=== PATIENT | female | born 1955 | race Caucasian/White ===

== ENCOUNTER 2018-07-22 13:38 | Outpatient (CLI) | payer MEDICAID, SELFPAY ==
--- NOTE | 2018-07-22 10:42 | DI.RAD_ITS ---
SYMPTOMS/DIAGNOSIS: ARTHRITIS, M19.90, FOOT PAIN, M79.673 RIGHT FOOT: The bones appear osteopenic. There are small heal spurs. There is narrowing at the tarsal metatarsal joints as well as at the navicular cuneiform joints. The MTP joints are unremarkable. There is no evidence of fracture. IMPRESSION: Degenerative changes greatest of the tarsal metatarsal joints. LEFT FOOT: There is no evidence of fracture. The bones appear osteopenic. There is narrowing and spurring at the tarsal metatarsal joints. Spurring is also seen at the talonavicular joints. Heel spurs are present. The MTP joints are unremarkable. No bony erosions are seen. IMPRESSION: Degenerative changes greatest at the tarsal metatarsal joints.
== END 2018-07-22 13:58 ==
PROVIDERS: PCP Family Medicine; Visit Provider Family Medicine
DX: M79.671 Pain in right foot (principal); M19.071 Primary osteoarthritis, right ankle and foot; M77.31 Calcaneal spur, right foot; M79.672 Pain in left foot; M19.072 Primary osteoarthritis, left ankle and foot; M77.32 Calcaneal spur, left foot
CPT/HCPCS: 73630

== ENCOUNTER 2019-02-04 01:13 | Outpatient (CLI) | payer MEDICAID, SELFPAY ==
--- NOTE | 2019-02-04 12:37 | DI.MAMMO_ITS ---
EXAM: MG MAMMO SCREENING CLINICAL HISTORY: [facility] Z00.00, SCREENING. TECHNIQUE: Mammograms were interpreted according to the usual protocol including computer analysis w [employer] system, tomosynthesis and C-view imaging. COMPARISON: Current examination is compared with previous examinations including January 2017 FINDINGS: Breasts are of moderate density with fairly symmetrical distribution of fibroglandular tissue. No dom inant mass or clumped microcalcification is identified in either breast. Current examination is naomi red with previous examinations including January 2017 and there has been no gross interval change in appearance in comparison with previous studies. IMPRESSION: No specific evidence of malignancy at this time. Routine screening examinations are suggested at year ly intervals in this age group according to the ACS/ACR guidelines. Category 1, breast density catego ry B. BI-RADS Cat 1 - Negative Breast Density - Category B - Scattered areas of fibroglandular density
== END 2019-02-04 01:33 ==
PROVIDERS: PCP Family Medicine; Visit Provider Family Medicine
DX: Z12.31 Encounter for screening mammogram for malignant neoplasm of breast (principal); Z00.00 Encounter for general adult medical examination without abnormal findings
CPT/HCPCS: 77063; 77067

== ENCOUNTER 2019-03-11 16:53 | Outpatient (REF) | payer MEDICAID, SELFPAY ==
[2019-03-11 20:42] LABS: Abs Immature Grans 0.01 k/cumm (0.0-0.09); Absolute Basophil Count 0.02 k/cumm (0.0-0.2); Absolute Eosinophil Count 0.36 k/cumm (0.0-0.7); Absolute Lymphocyte Count 0.98 k/cumm (1.2-3.4); Absolute Monocyte Count 0.41 k/cumm (0.11-0.7); Absolute Neutrophil Count 2.98 k/cumm (1.2-6.7); Basophils % 0.4; Eosinophils % 7.6; HCT 38.4 % (36.0-46.0); HGB 12.3 g/dL (12.0-15.5); Immature Grans % 0.2; Lymphocytes % 20.6; Mean Corpuscular Hemoglobin 30.8 pg (27.0-33.0); Monocytes % 8.6; Neutrophils % 62.6; Platelet Count 306 x1000/uL (130-400); RBC Distribution Width 12.2 % (11.7-14.6); White Blood Cell Count 4.76 k/cumm (4.4-10.8)
[2019-03-11 21:11] LABS: TSH (W/Ref FT4) 0.91 uIU/mL (0.36-3.74); Vitamin B12 299 pg/mL (193-986)
[2019-03-15 17:24] LABS: Albumin 60.8 % (55.8-66.1); Total Protein 6.8 g/dL (6.3-8.2)
== END 2019-03-11 17:13 ==
LOC: NCHCN 16:53
PROVIDERS: PCP Family Medicine; Visit Provider Family Medicine
DX: R22.42 Localized swelling, mass and lump, left lower limb (principal); M25.562 Pain in left knee; G62.9 Polyneuropathy, unspecified
CPT/HCPCS: 82607; 84165; 84443; 85025

== ENCOUNTER 2019-03-12 09:00 | Outpatient (CLI) | payer MEDICAID, SELFPAY ==
--- NOTE | 2019-03-12 11:52 | DI.US_ITS ---
EXAM: US LOWER EXTREMITY VENOUS LT CLINICAL HISTORY: SWELLING LT LEG R22.42, LT KNEE PAIN M25.562 TECHNIQUE: Left lower extremity venous ultrasound performed using grayscale, color-flow, and spectra l Doppler analysis. COMPARISON: No exams were available for comparison FINDINGS: The left common femoral, femoral and popliteal veins demonstrate normal compressibility, augmentation , and color Doppler. The posterior tibial veins are patent. The saphenofemoral junction is unremarkab le. There is no evidence of a popliteal cyst. IMPRESSION: No DVT.
== END 2019-03-12 09:20 ==
PROVIDERS: PCP Family Medicine; Visit Provider Family Medicine
DX: R22.42 Localized swelling, mass and lump, left lower limb (principal); M25.562 Pain in left knee
CPT/HCPCS: 93971

== ENCOUNTER 2020-02-14 15:40 | Outpatient (CLI) | payer MEDICAID, SELFPAY ==
--- NOTE | 2020-02-14 13:00 | DI.RAD_ITS ---
EXAM: XR KNEE LT 4V AP,LAT,MALCOLM,PAT INDICATION: lt knee pain. COMPARISON: CR RIGHT KNEE 3 VIEWS from 10/06/2015 TECHNIQUE: 2D digital imaging was performed. FINDINGS: There is moderate to severe narrowing of the medial femoral tibial joint. There is periarticular spu rring. There is mild spurring at the tibial spines. There is also moderate spurring at the patellof emoral joint with no significant joint space narrowing. Venous varicosities are noted medially. IMPRESSION: Degenerative changes, greatest of the medial femoral tibial joint. DATA REPOSITORY: RADIATION DOSE DELIVERED:
== END 2020-02-14 16:00 ==
PROVIDERS: PCP Family Medicine; Referring Provider Family Medicine; Visit Provider Physician Assistant Surgical
DX: M17.12 Unilateral primary osteoarthritis, left knee (principal)
CPT/HCPCS: 73564

== ENCOUNTER 2021-07-19 18:11 | Outpatient (REF) | payer MEDICAID, SELFPAY ==
[2021-07-19 19:22] LABS: ALT 22 U/L (14-59); AST 17 U/L (15-37); Albumin 4.1 g/dL (3.4-5.0); Alkaline Phosphatase 126 U/L (46-116); Anion Gap 11.6 mmol/L (3-11); BUN 21 mg/dL (7-18); Bilirubin, Total 0.6 mg/dL (0.2-1.0); CO2 22.4 mmol/L (21.0-32.0); CREATININE 0.6 mg/dL (0.55-1.02); Calcium 8.6 mg/dL (8.5-10.1); Calculated LDL 142 mg/dL (<100); Chloride 105 mmol/L (98-107); Cholesterol 226 mg/dL (<200); Glucose 88 mg/dL (74-106); HDL Cholesterol 69 mg/dL (40-60); Potassium 4.1 mmol/L (3.5-5.1); Sodium 139 mmol/L (136-145); Triglyceride 75 mg/dL (<150)
== END 2021-07-19 18:12 | disposition home or self-care (01) ==
LOC: NCHCN 18:11
PROVIDERS: PCP Family Medicine; Visit Provider Family Medicine
DX: Z00.00 Encounter for general adult medical examination without abnormal findings (principal)
CPT/HCPCS: 80053; 80061

== ENCOUNTER → 2021-09-28 00:04 | Outpatient (CLI) | payer MEDICAID, SELFPAY ==
--- NOTE | 2021-09-28 | DI.DEXA_ITS ---
Exam(s) XR DEXA BONE DENSITY W/WO YARED EXAM: XR DEXA BONE DENSITY W/WO YARED CLINICAL HISTORY: [facility] Z78.0, SCREENING for osteoporosis TECHNIQUE: COMPARISON: No exams were available for comparison FINDINGS: Lateral Spine Image: Unremarkable. No compression deformities identified. Left hip: Total T-Score: -1.4 Total Z-Score: -0.1 T- and Z-scores: Findings are consistent with osteopenia. Lumbar Spine: Total T-Score: 0.9 Total Z-Score: 2.8 T- and Z-scores: Within normal limits. IMPRESSION: No evidence of osteoporosis.
--- NOTE | 2021-09-28 10:49 | DI.MAMMO_ITS ---
Exam(s) MAMMO SCREENING EXAM: MAMMO SCREENING CLINICAL HISTORY: SCREENING FOR BREAST CANCER Z12.31 TECHNIQUE: Bilateral full field digital CC and MLO mammographic images were obtained with 3D tomosyn thesis and utilizing computer aided detection (CAD). COMPARISON: Available for comparison. FINDINGS: Masses/Architectural Distortion: None seen. Microcalcifications: No suspicious pleomorphic-type are seen. Skin Thickening/Nipple Retraction: None. IMPRESSION: 1. No significant interval change with no specific features of malignancy noted. 2. Unless there is more urgent need, screening mammography is recommended, as per [employer] guidelines. BI-RADS Category 1 - Negative Breast Density - Category B - Scattered areas of fibroglandular density Breast density category C or D implies that the patient has dense breast tissue. Dense breast tissue is very common and is not abnormal but dense breast tissue can make it harder to find cancer on a ma mmogram. Also, dense breast tissue may increase their breast cancer risk. This information about the result of the mammogram report was provided to the patient to raise their awareness. Use this report when you speak with the patient about their risks for breast cancer, which includes their family hist ory. At that time, you may recommend for more screening tests (Ultrasound or MRI) as they might be us eful based on their risk. A negative radiographic report should not delay biopsy if a dominant or clinically suspicious mass is present. Up to ten percent of cancers are not identified on mammography. A negative report may reinforce clinical impression. Adenosis and dense breasts may obscure an underlying neoplasm. False positive reports average 6 to 10%. Patient will receive a letter notifying them of these results.
== END ==
PROVIDERS: PCP Family Medicine; Visit Provider Family Medicine
DX: Z12.31 Encounter for screening mammogram for malignant neoplasm of breast (principal); R92.8 Other abnormal and inconclusive findings on diagnostic imaging of breast; Z13.820 Encounter for screening for osteoporosis; Z78.0 Asymptomatic menopausal state
CPT/HCPCS: 77063; 77067; 77080

== ENCOUNTER 2022-04-04 13:20 | Outpatient (REF) | payer MEDICAID, SELFPAY ==
[2022-04-04 16:07] LABS: Calculated LDL 142 mg/dL (<100); Cholesterol 223 mg/dL (<200); HDL Cholesterol 72 mg/dL (40-60); Triglyceride 45 mg/dL (<150)
== END 2022-04-04 13:21 | disposition home or self-care (01) ==
LOC: NCHCN 13:20
PROVIDERS: PCP Family Medicine; Visit Provider Family Medicine
DX: R03.0 Elevated blood-pressure reading, without diagnosis of hypertension (principal); Z00.00 Encounter for general adult medical examination without abnormal findings
CPT/HCPCS: 80061

== ENCOUNTER 2023-01-28 16:10 | Outpatient (REF) | payer MEDICAID, SELFPAY ==
[2023-01-28 16:00] LABS: ALT 21 U/L (14-59); AST 19 U/L (15-37); Albumin 3.7 g/dL (3.4-5.0); Alkaline Phosphatase 116 U/L (46-116); Anion Gap 10.2 mmol/L (3-11); BUN 25 mg/dL (7-18); Bilirubin, Total 0.6 mg/dL (0.2-1.0); CO2 22.8 mmol/L (21.0-32.0); CREATININE 0.9 mg/dL (0.55-1.02); Calcium 8.8 mg/dL (8.5-10.1); Calculated LDL 125 mg/dL (<100); Chloride 107 mmol/L (98-107); Cholesterol 207 mg/dL (<200); Estimated GFR 69.64 (mL/min/1.73m2); Glucose 99 mg/dL (74-106); HDL Cholesterol 68 mg/dL (40-60); Potassium 4.1 mmol/L (3.5-5.1); Sodium 140 mmol/L (136-145); Triglyceride 73 mg/dL (<150)
== END 2023-01-28 16:11 | disposition home or self-care (01) ==
LOC: NCHCN 16:10
PROVIDERS: PCP Family Medicine; Visit Provider Family Medicine
DX: R03.0 Elevated blood-pressure reading, without diagnosis of hypertension (principal); R79.89 Other specified abnormal findings of blood chemistry
CPT/HCPCS: 80053; 80061

== ENCOUNTER 2023-03-14 09:40 | Day surgery (SDC) | payer MEDICAID, SELFPAY ==
--- NOTE | 2023-03-13 15:27 | PDOC.DSDIS_ITS ---
Date of service: 03/14/23 Time of Service: 11:25 Discharge Plan Disposition Patient Disposition: Home Condition: Good Discharge Details Reason For Visit: Screening colonoscopy Attending Provider: Js Sparks Primary Care Provider: Florence Graham V Home Meds and New Rx's Prescriptions: Continued diclofenac sodium [Voltaren Arthritis Pain] 1 % gel 2 g topical QID PRN Rx Instructions: apply to single elbow, wrist or hand; for hand includes palm/fingers/back of hand naproxen 500 mg tablet 500 mg PO BID PRN cholecalciferol (vitamin D3) 50 mcg (2,000 unit) capsule 50 mcg PO DAILY cyanocobalamin (vitamin B-12) 1,000 mcg capsule 1,000 mcg PO DAILY Discontinued bisacodyl [Dulcolax (bisacodyl)] 5 mg tablet,delayed release (DR/EC) 5 mg PO ONCE Qty: 4 0RF Rx Instructions: Take per colonoscopy instructions provided by ordering providers office polyethylene glycol 3350 17 gram/dose powder 17 g PO ONCE Qty: 238 0RF Rx Instructions: Take per colonoscopy instructions provided by ordering providers office Discharge Instructions Instructions: Colorectal Polyps (GEN) Additional Instructions: Eliana, We were able to complete your colonoscopy today without any difficulty. I did find 2 small polyps. I removed these both completely. Once I have the results of the polyp report, my office will be in touch with recommendations for your next colonoscopy. Incidentally, you do have some very mild internal hemorrho ids. They do not require any specific treatment unless they become problematic for you. 1. If tolerated, consume a soft, low fiber diet for 1-2 days. 2[address] Do not drive, drink alcohol, operate machinery, make critical decisions, or do activities that require coordination or balance for 24 hours. 3. Because air was put into your colon during the procedure, expelling air from your rectum (passing gas or farting) is normal. 4. You may not have a bowel movement for 1-3 days because of the colonoscopy prep. This is normal. 5. Go directly to the emergency room if you notice any of the following: Develop chills (warm to touch), or if you have a thermometer and your temperature is above 101 Difficulty breathing or difficultly swallowing Persistent vomiting Severe abdominal pain, other than gas cramps Severe chest pain Black, tarry stools Any bleeding ? exceeding one tablespoon 6. Call your physician if the site where your intravenous was started becomes red, swollen, painful, and warm to touch. 7. Your physician has reviewed your pre-procedure medications. Please continue to take those medications as previously ordered. You will be given specific information/education regarding any changes to your medications before leaving. Activity:: Activity as Tolerated Diet:: As Tolerated Discharge Orders Discharge Orders: Discharge Order (Routine); Ordered 03/13/23 Ordered By: Js pSarks DS: Diagnosis Discharge Diagnosis (1) Screening for colorectal cancer: Status: Acute Asessment and Plan: Follow-up on polypectomy results
--- NOTE | 2023-03-13 15:28 | W.COLOREPORT ---
Date of service: 03/14/23 Time of Service: : Colonoscopy Report Date of procedure: 03/14/23 Pre-op diagnosis general: Screening colonoscopy Post-op diagnosis procedure note: other (Colon polyps, hemorrhoids) Procedure: Colonoscopy Surgeon: Js Sparks Anesthesia Type: General:No Airway Estimated blood loss (mL): 5 Pathology: other (0.25 cm polyp at 35 cm, 0.25 cm polyp at 15 cm) Complications: None Disposition: same day Indications: Eliana is 67 years old. She has a positive Cologuard test, needs a follow-up screening colonoscopy Prep: Miralax/Dulcolax Procedure Start Time: 10:57 Procedure End Time: 11:18 Retraction Time: 15 Findings: Grade 1 internal hemorrhoids, 0.25 cm polyp at 35 cm, 0.25 cm polyp at 15 cm Procedure Description: After the induction of monitored anesthetic care, and with the patient in left lateral decubitus position, I began by performing an external anorectal exam.? Perineum and skin were normal, as was the anal verge.? There were some external perianal skin tags consistent with old hemorrhoids.? Next, I performed a digital rectal exam.? I did not appreciate any abnormal findings.? Next, I advanced a colonoscope into the rectal vault.? I performed retroflexion.? There are grade 1 internal hemorrhoids.? Using insufflation, I then advanced the colonoscope beyond the rectal folds and into the sigmoid colon before advancing towards the cecum.? The quality of the prep was excellent.? The scope was noted to be in the cecum by identification of the ileocecal valve and appendiceal orifice.? I then began withdrawing the colonoscope using repeated irrigation as necessary for full evaluation of the colonic mucosa. Around 35 cm from the anal verge was a 0.25 cm sessile polyp. I removed this with cold forceps and there was minimal bleeding. Similarly, there was another 0.25 cm polyp around 15 cm from the anal verge. This was also sessile in nature, and I removed this with cold forceps as well. ?Once the scope was withdrawn to the level of the rectum, great care was taken to examine portions of the rectal folds.? Finally, the scope was withdrawn and the patient was brought to the same-day surgery recovery unit as the anesthetic wore off. ?The findings and instructions were shared with the patient prior to discharge. [place] Bowel Prep [place] Bowel Prep Right Colon: 3 Left Colon: 3 Transverse Colon: 3 Total Score: 9
[2023-03-14 09:45] VITALS: BP 145/82; PULSE 73; RESP 18; TEMP 36; O2SAT 96
[2023-03-14] MEDS: Lactated Ringers 1,000 ML 80 ML IV (10:18)
--- NOTE | 2023-03-14 10:34 | ANES.PREOP_ITS ---
General Info Date of Service Date Performed: 03/14/23 Height: 5 ft 4 in Weight: 68.9 kg Body Mass Index (BMI): 26.0 Surgical Procedure: Operation Date: 03/14/23 10:50 Proposed Procedure Side Surgeon gonzales Sparks MD Meds Allergies and Home Medications Allergies Allergy/AdvReac Type Severity Reaction Status Date / Time Sulfa (Sulfonamide Allergy Intermediate pruritis Verified 03/14/23 10:05 Antibiotics) Home Medication Medication Instructions Recorded cholecalciferol (vitamin D3) 50 50 mcg PO DAILY 11/18/22 mcg (2,000 unit) capsule cyanocobalamin (vitamin B-12) 1,000 mcg PO DAILY 11/18/22 1,000 mcg capsule diclofenac sodium 1 % topical gel 2 g topical QID PRN 11/18/22 (Voltaren Arthritis Pain) naproxen 500 mg tablet 500 mg PO BID PRN 11/18/22 Current Visit Medications: Current Medications Generic Name Dose Route Start Last Admin Trade Name Freq PRN Reason Stop Dose Admin Hyoscyamine Sulfate 0.125 mg 03/13/23 15:30 Hyoscyamine 0.125 Mg Sl/Oral/Chew SL 04/12/23 15:29 DIRECTED PRN Ringer's Solution 1,000 mls @ 80 mls/hr 03/14/23 06:00 03/14/23 10:18 IV 04/12/23 23:59 80 mls/hr INFUSION TRAM Administration IV Miscellaneous Supplies 1 each 03/14/23 06:00 Iv Access IV 04/12/23 23:59 DIRECTED TRAM Ondansetron HCl 4 mg 03/13/23 15:30 Ondansetron 4 Mg/2 Ml Vial IVP 04/12/23 15:29 Q4H PRN PRN Nausea / Vomiting Sodium Chloride 0 ml 03/14/23 06:00 Normal Saline Flush 10 Ml Syr IV 04/12/23 23:59 PRN PRN Sodium Chloride 0 ml 03/14/23 06:00 Normal Saline 10 Ml Vial IJ 04/12/23 23:59 DIRECTED PRN Sterile Water 0 ml 03/14/23 06:00 Water,Injection,Sterile 10 Ml Vial IJ 04/12/23 23:59 DIRECTED PRN PFSH Active Problems Active Problems: Problem Status Onset Code Screening for colorectal cancer Z12.11, Z12.12 Positive colorectal cancer screening using Cologuard test R19.5 Eyelid disorder H02.9 Guaiac positive stools R19.5 Primary osteoarthritis of left knee M17.12 Primary osteoarthritis of right knee M17.11 Left knee pain M25.562 Medical History Medical History (Updated 03/13/23 @ 15:27 by Js Sparks MD) DJD (degenerative joint disease) UTI (urinary tract infection) Chest wall pain Per pt. states this was stress related Poor dentition Knee pain, right Carpal tunnel syndrome, bilateral Peripheral neuropathy Arthritis Arthralgia Shoulder pain, right Foot pain Localized swelling of left lower leg Onychomycosis Elevated blood pressure reading without diagnosis of hypertension Hyperlipidemia Family history of premature coronary heart disease Family history of CVA Right carpal tunnel syndrome (10/06/15) Tobacco Smoking/Tobacco Use Status: Never Alcohol Alcohol Intake: never Substance Use Substance use: Never Substance use type: does not use Vital Signs and Lab Results Vital Signs Most Recent Vital Signs in EMR: Most Recent Vital Signs Temp Pulse Resp BP Pulse Ox 36 C L 73 18 145/82 H 96 03/14/23 09:45 03/14/23 09:45 03/14/23 09:45 03/14/23 09:45 03/14/23 09:45 Lab Results Blood Type / Crossmatch: No Data to Display Complete Blood Count: No Data to Display Complete Metabolic Panel: No Data to Display Liver Function Panel: No Data to Display Coagulation Panel: No Data to Display Cardiac Panel: No Data to Display Arterial Blood Gas: No Data to Display Venous Blood Gas: No Data to Display Pancreas Panel: No Data to Display Thyroid Panel: No Data to Display Infectious Disease: No Data to Display Blood Cultures: No Data to Display Toxicology Panel: No Data to Display Imaging and Studies Imaging and Studies Study information below may be from another EMR and interpreted by another provider. Please see original notes in EMR for more complete details. Stress Test Summary: 06/22/2015: Stress results: [facility] INFO:[id number] Maximal heart rate during stress was 160bpm (100% of maximal predicted heart rate). The maximal predicted heart rate was 160bpm. There is a normal resting blood pressure with a hypertensive response to stress. The rate-pressure product for the peak heart rate and blood pressure was 42351jl Hg/min. Constant low-grade (2/10) atypical chest pain. Exercise capacity is average for age. Stress ECG: STUDY DATA: EXCERCISE ENDED AT 6 MINS 33 SECS DUE TO FATIGUE. PT STARTED THE STUDY W/ BASELINE LEFT SHOULDER PAIN 2/10. NO INCREASE IN CHEST PAIN, NO LIMITING SOB, NO NAUSEA OR DIAPHORESIS DURING THE TESTING. METS:10.16 MAX HR: 160. 100% OF TARGET. MILDLY DIMINISHED EXCERCISE CAPACITY. DR. CORNEJO CONSULTED PRIOR TO DISCHARGING THIS PT. The stress ECG is positive. The specificity of this test is limited by left ventricular hypertrophy. Maximal ST change occurred during the exercise phase. Stress ECG change: horizontal depression. Severity: 1.5-2.0mm. In lead groups: II, III, and aVF. Lin treadmill score: -8. This score predicts a moderate risk of cardiac events. Anesthesia Assessment and Plan Anesthesia History Personal History: No History of Anesthesia Complications Family History: No Family History of Anesthesia Complications Exercise Tolerance Exercise Tolerance: Metabolic Equivalents>4 Pertinent Negatives Pertinent Negatives: No Symptoms of GERD, No Major Cardiovascular Symptoms or Complaints and No Major Pulmonary Symptoms or Complaints Cardiac & Pulmonary Exam Cardiac Exam: Normal S1/S2 Heart Sounds Pulmonary Exam: Clear Bilateral Breath Sounds Implantable Cardiac Device Does patient have a Pacemaker or an ICD?: No Airway Exam Known Difficult Airway: No Mallampati Class: 1 Mouth Opening: Normal (> 3cm) Thyromental Distance: Greater than 3 cm Neck Range of Motion: Full ROM Neck Circumference: Normal Teeth Condition: Removable Dentures/Plates Upper and Removable Dentures/Plates Lower ASA Classification ASA Score: ASA 2 Emergency Case?: No NPO Status NPO Status: NPO Clears >2 hours, Solids >8 hours Anesthesia Plan Resuscitation Status: Full Code Anesthesia Technique: General Anesthesia Airway Planned: Natural Airway Monitors Used: Standard Monitors Preoperative Comments:: Patient reports she followed up with cardiology in [place] after her stress testing and recalls no further intervention. Functionally, is very active, works on a farm milking cows and reports no episodes of chest pain or pressure. Recalls the events of 7/years/ago related to stress and anxiety.
[2023-03-14 10:38] VITALS: BMI 26.0
--- NOTE | 2023-03-14 11:12 | BOWEL_PTH ---
PATIENT: Eliana Borjas LOC: [facility] U#:[id number] AGE/SX: 67/F ROOM: RE03/14/[address]: Js Sparks MD : [id number] BED: DIS: 03/14/2023 SPEC #: [id number] RECD: 03/14/23 17:13 STATUS: [place] RE #: [id number] KAT: 03/14/23 11:[address]: Js Sparks DEPT: Surgical Specimen RECD BY: Carine Roberson ENTERED: 03/14/23 17:14 SP TYPE: Bowel OTHR DR: Florence Graham V Tissues: 1 - BIOPSY BOWEL 2 - BIOPSY BOWEL Procedures: GROSS AND MICRO LEVEL 4 Comments: [id number]
[2023-03-14 11:25] VITALS: BP 128/62; PULSE 72; RESP 16; TEMP 36; O2SAT 97
[2023-03-14 12:00] VITALS: BP 161/64; PULSE 66; RESP 16; TEMP 36; O2SAT 98
--- NOTE | 2023-03-14 12:12 | W.ANESPOSTOP ---
Postoperative Evaluation Date, Time and Location Date Performed: 03/14/23 Time Performed: 12:07 Patient Location: Day Surgery Unit Vital Signs Most Recent Imported Vital Signs: Most Recent Vital Signs Temp Pulse Resp BP Pulse Ox 36 C L 72 16 128/62 97 03/14/23 11:25 03/14/23 11:25 03/14/23 11:25 03/14/23 11:25 03/14/23 11:25 Pain Score Most Recent Pain Score: Most Recent Pain Score Pain Level 0 03/14/23 11:25 Assessment Mental Status: Awake (Alert & Oriented to Patient Baseline) Airway and Respiratory Function: Patent airway with normal (patient baseline) respiratory exam Cardiovascular Function: Hemodynamically Stable Hydration Status: Adequately Hydrated Nausea & Vomiting: No Nausea or Vomiting Pain: Pt. Denies Any Pain Peripheral Nerve Block: Patient did not receive a nerve block
== END 2023-03-14 12:33 | disposition home or self-care (01) ==
LOC: SUR 09:40
PROVIDERS: PCP Family Medicine; Visit Provider Surgery
PROC: 0DJD8ZZ Inspection of Lower Intestinal Tract, Via Natural or Artificial Opening Endoscopic (ICD-10-PCS; CPT 45378; principal; 2023-03-14 10:45)
DX: Z12.11 Encounter for screening for malignant neoplasm of colon (principal); K63.5 Polyp of colon; K64.0 First degree hemorrhoids; R19.5 Other fecal abnormalities
CPT/HCPCS: 45380; 88305

== ENCOUNTER → 2023-08-11 03:18 | Outpatient (CLI) | payer MEDICAID, SELFPAY ==
--- NOTE | 2023-08-11 13:05 | DI.MAMMO_ITS ---
Exam(s) MAMMO SCREENING EXAM: MAMMO SCREENING CLINICAL HISTORY: SCREENING, Z12.31 TECHNIQUE: Bilateral full field digital CC and MLO mammographic images were obtained with 3D tomosyn thesis and utilizing computer aided detection (CAD). COMPARISON: Available for comparison. FINDINGS: Masses/Architectural Distortion: There are stable bilateral breast nodules. No new nodules are seen. No areas of architectural distortion are present. Microcalcifications: No suspicious pleomorphic-type are seen. Skin Thickening/Nipple Retraction: None. IMPRESSION: 1. No significant interval change with no specific features of malignancy noted. 2. Unless there is more urgent need, screening mammography is recommended, as per [place] [employer] guidelines. BI-RADS Category 2 - Benign Findings Breast Density - Category B - Scattered areas of fibroglandular density Breast density category C or D implies that the patient has dense breast tissue. Dense breast tissue is very common and is not abnormal but dense breast tissue can make it harder to find cancer on a ma mmogram. Also, dense breast tissue may increase their breast cancer risk. This information about the result of the mammogram report was provided to the patient to raise their awareness. Use this report when you speak with the patient about their risks for breast cancer, which includes their family hist ory. At that time, you may recommend for more screening tests (Ultrasound or MRI) as they might be us eful based on their risk. A negative radiographic report should not delay biopsy if a dominant or clinically suspicious mass is present. Up to ten percent of cancers are not identified on mammography. A negative report may reinforce clinical impression. Adenosis and dense breasts may obscure an underlying neoplasm. False positive reports average 6 to 10%. Patient will receive a letter notifying them of these results.
== END ==
PROVIDERS: PCP Family Medicine; Visit Provider Family Medicine
DX: Z12.31 Encounter for screening mammogram for malignant neoplasm of breast (principal)
CPT/HCPCS: 77063; 77067

== ENCOUNTER 2023-09-18 14:36 | Outpatient (REF) | payer MEDICAID, SELFPAY ==
[2023-09-18 19:47] LABS: ALT 24 U/L (14-59); AST 18 U/L (15-37); Alkaline Phosphatase 101 U/L (46-116); Anion Gap 11.5 mmol/L (3-11); BUN 26 mg/dL (7-18); CO2 23.5 mmol/L (21.0-32.0); CREATININE 0.6 mg/dL (0.55-1.02); Calculated LDL 132 mg/dL (<100); Chloride 107 mmol/L (98-107); Cholesterol 211 mg/dL (<200); Glucose 89 mg/dL (74-106); HDL Cholesterol 68 mg/dL (40-60); Potassium 4.3 mmol/L (3.5-5.1); Sodium 142 mmol/L (136-145); Total Protein 6.8 g/dL (6.4-8.2); Triglyceride 57 mg/dL (<150); Vitamin B12 1895 pg/mL (193-986)
== END 2023-09-18 14:37 | disposition home or self-care (01) ==
LOC: NCHCN 14:36
PROVIDERS: PCP Family Medicine; Visit Provider Family Medicine
DX: I10 Essential (primary) hypertension (principal); E78.5 Hyperlipidemia, unspecified
CPT/HCPCS: 80053; 80061; 82607

== ENCOUNTER 2023-12-31 00:35 | Outpatient (CLI) | payer MEDICAID, SELFPAY ==
--- NOTE | 2023-12-31 | DI.RAD_ITS ---
Exam(s) XR LUMBAR SPINE COMPLETE EXAM: XR LUMBAR SPINE COMPLETE CLINICAL HISTORY: RADICULOPATHY LUMBAR REGION M54.16. TECHNIQUE: 2D digital imaging was performed. COMPARISON: CR XR DEXA BONE DENSITY W/WO YARED from 09/28/2021 FINDINGS: Five views No evidence fractures. There is anterolisthesis of L4 upon L5 and L5 upon S1, both appear to be related to advanced facet ar thropathy. There is approximately 1 cm slippage at both these levels. There is also moderate disc s pace narrowing at both these levels. There is mild retrolisthesis of L3 upon L4. There is advanced disc space narrowing of the lower thoracic levels. Milder disc space narrowing at L1-2 and L2-3 leve ls. Bone density normal. No osseous lesions evident. Sacroiliac joints unremarkable. No prominent scoliosis. IMPRESSION: Multilevel degenerative disc disease and multilevel facet arthropathy and multilevel L4 upon L5 and L 5 upon S1 listhesis. If clinically indicated further study with MRI can be performed to determine th e amount of canal stenosis/foraminal stenosis. DATA REPOSITORY: RADIATION DOSE DELIVERED:
== END 2023-12-31 00:55 ==
LOC: DI 00:35
PROVIDERS: PCP Family Medicine; Visit Provider Family Medicine
DX: M54.16 Radiculopathy, lumbar region (principal)
CPT/HCPCS: 72110

== ENCOUNTER 2024-02-27 01:14 | Outpatient (CLI) | payer MEDICAID, SELFPAY ==
--- NOTE | 2024-02-27 | DI.MRI_ITS ---
Exam(s) MR LUMBAR SPINE WO EXAM: MR LUMBAR SPINE WO CLINICAL HISTORY: LUMBAR RADICULOPATHY M54.16. TECHNIQUE: Multiplanar multisequence MRI of the Lumbar spine was performed. COMPARISON: CR XR LUMBAR SPINE COMPLETE from 12/31/2023 FINDINGS: Bones: The last intervertebral disc space is designated the L5/S1 level for the numbering purpose of this ex amination. The vertebral body heights are well maintained. Alignment: Unremarkable. The marrow signal characteristics are unremarkable. Cord: The conus tip ends at the T12 L1 level. It is of normal size and signal intensity. T12-L1: Severe loss of disc height and circumferentially projecting endplate osteophytes. Facet dege nerative changes. Severe bilateral neural foraminal narrowing. Mild anterolisthesis. L1-2:Sgzr-bg-nzurnddp loss of disc height, greater posteriorly. Circumferential disc bulging. No fo salma disc herniation is present. Facet degenerative changes. Mild anterolisthesis. No central spina l canal stenosis.Severe bilateral neural foraminal narrowing. L2-3:Mild loss of disc height. Mild disc bulging. Facet degenerative changes. No focal disc hernia tion is present. No central spinal canal stenosis.Moderate bilateral neural foraminal stenosis. L3-4: Disc height is preserved. Mild concentric disc bulging. No focal disc herniation is present. Prominent facet degenerative changes encroaching on the transverse dimension of the central canal ca using moderate central canal stenosis. Moderate bilateral neural foraminal narrowing. L4-5:Normal disc height. Mild disc bulging. Mild retrolisthesis. No focal disc herniation is prese nt. Severe facet degenerative changes causing severe central canal stenosis. Severe right and moder ate left neural foraminal narrowing. L5-S1: Disc height is maintained. Mild disc bulging. Slight retrolisthesis. Facet degenerative ana critsina nges.No focal disc herniation is present. Mild central spinal canal stenosis mild right and moderat e left neural foraminal stenosis. The visualized SI joints and sacrum are unremarkable. Soft tissues: The paraspinal soft tissues are unremarkable. Atrophy of paraspinal muscles. IMPRESSION: Severe facet degenerative changes combine with degenerative disc changes to produce severe central ca nal stenosis at L4-5 and moderate central canal stenosis at L3-4. Multilevel severe bilateral neural foraminal narrowing.. DATA REPOSITORY:
== END 2024-02-27 01:34 ==
LOC: DI 01:14
PROVIDERS: PCP Family Medicine; Visit Provider Family Medicine
DX: M48.062 Spinal stenosis, lumbar region with neurogenic claudication (principal)
CPT/HCPCS: 72148

== ENCOUNTER 2024-04-14 14:51 | Outpatient (CLI) | payer MEDICAID, SELFPAY ==
--- NOTE | 2024-04-14 14:30 | DI.RAD_ITS ---
Exam(s) XR LUMBAR SPINE COMP W FLEX/EX EXAM: XR LUMBAR SPINE COMP W FLEX/EX CLINICAL HISTORY: Pain, spondylolisthesis, lumbar region, spinal stenosis, M43.16, M48.062. TECHNIQUE: 2D digital imaging was performed. COMPARISON: No exams were available for comparison FINDINGS: Seven views: There are no compression fractures. There is degenerative anterolisthesis of L4 upon L5 and L5 upon S1. This is related to facet arthrosis at both levels. At the L4-5 level there is 1 cm anterior sli ppage of L4 upon L5. Did degenerative changes in the facet joints are responsible for this. There a re no pars defects at this level. At L5-S1 level there is 9 mm anterior slippage of L5 upon S1 which appears to also be related to adva nced facet arthropathy. No obvious pars defects. There is mild disc space narrowing at this level. Other disc spaces exhibit normal height with the exception of advanced disc space narrowing in the l ower thoracic spine levels. There is also an element of retrolisthesis of L1 upon L2 with approximately 5 mm retrolisthesis of L1 upon L2.. Also mild retrolisthesis of T12 upon L1. The amount of slippage at the above-described levels appears similar with flexion and extension and t hese moves do not bring out other occult listhesis ease at other levels. There is a mild scoliosis c onvex left in the lumbar spine. The sacroiliac joints appear unremarkable. No osseous lesions IMPRESSION: Multilevel degenerative listhesis of L4 upon L5 and L5 upon S1, as described above. There is also an element of retrolisthesis of L1 upon L2 and T12 upon L1. DATA REPOSITORY: RADIATION DOSE DELIVERED:
== END 2024-04-14 15:11 ==
LOC: DI 14:51
PROVIDERS: PCP Family Medicine; Visit Provider Anesthesiology Pain Medicine
DX: M48.062 Spinal stenosis, lumbar region with neurogenic claudication
CPT/HCPCS: 72114

== ENCOUNTER 2024-05-17 07:36 | Outpatient (CLI) | payer MEDICAID, SELFPAY ==
--- NOTE | 2024-05-17 06:30 | DI.RAD_ITS ---
Exam(s) XR PAIN CLINIC LUMBAR SP 2V EXAM: XR PAIN CLINIC LUMBAR SP 2V CLINICAL HISTORY: Dx: Lumbar Radiculopathy TECHNIQUE: 2D and realtime digital imaging was performed. Radiologist not present. CONTRAST MATERIAL: None. COMPARISON: No exams were available for comparison FINDINGS: Fluoroscopy was provided for pain management therapy. Epidural steroid injection Please refer to procedure report or details. Radiation Exposure Index: Ka,r=0.96 mGy IMPRESSION: As above. RADIATION DOSE DELIVERED:
[2024-05-17 07:44] VITALS: BP 136/83; PULSE 66; RESP 18; TEMP 36.2; O2SAT 98
--- NOTE | 2024-05-17 07:57 | PDOC.PAIN ---
Date of service: 05/17/24 Time of Service: 08:20 Pain Managment Procedure Note Procedure Note Procedure Note: Lumbar Interlaminar Epidural Steroid Injection ? Location: L5-S1 ? Pre-procedure Diagnosis: M54.16- Radiculopathy, LUMBAR region ? Post-procedure Diagnosis:? The same as above ? Sedation:? ? None ? Medication: Depo-Medrol 80 mg, Omnipaque 1 mL ? Estimated blood loss:? less than 2 cc ? Surgeon:? Stan Norris MD COMMENT: Patient has severe stenosis at L4-5 ? Procedure Detail:? The procedure and potential risks were explained to the patient and informed written consent was obtained. The patient was escorted to the procedure room and placed in the prone position. Pillows were utilized for proper positioning and comfort. Time out was performed in the procedure room with nursing staff confirming the patient's identity, procedure to be performed, allergies, and any blood thinning or anti-platelet medications.? The patient's neck and upper back was prepped with ChloraPrep and draped in a sterile fashion. Sterile technique was maintained throughout the procedure.? Sterile gloves were used, a face mask was worn, and new single dose vials of all medications were used with the top being swabbed with alcohol and given time to dry prior to withdrawal of medication. Lidocane 1% was used to anesthetize the skin.Using a 25-gauge 1.5 inch needle, 1% lidocaine was instilled into the superficial soft tissue overlying the targeted area to provide local anesthesia. With fluoroscopic guidance, a 17 -gauge Tuohy needle was advanced toward the interlaminar space of L5-S1. The needle was then advance through the ligamentum flavum and into the posterior epidural space using the loss of resistance technique. Correct needle placement was confirmed through review of the AP and contralateral oblique fluoroscopic views. A 19-gauge arrow catheter was threaded slightly cephalad Following negative aspiration, one cc of Omnipaque 240 contrast was injected which confirmed good flow throughout the epidural space and no evidence of vascular flow or flow into adjacent compartments. Next, following negative aspiration, 1 cc's of normal saline and 80mg of Depo-Medrol was injected. The needle was gently removed. The patient tolerated the procedure well and was transported to the recovery area for observation and discharge instructions. Permanent images saved and recorded. PAIN PRE-PROCEDURE 10 POST-PROCEDURE 010 Plan:? Follow up prn. COMMENT: Could repeat as needed. Patient pending neurosurgical evaluation.
[2024-05-17 08:04] VITALS: O2SAT 99
[2024-05-17 08:10] VITALS: O2SAT 99
[2024-05-17] MEDS: Omnipaque 240 MG/ML 50 ML BTL IJ (08:22)
[2024-05-17] MEDS: methylPREDNISolone ACETATE 40 MG/ML VIAL IJ (08:22)
[2024-05-17] MEDS: Epidural Tray 1 EACH MC (08:23)
== END 2024-05-17 07:37 | disposition home or self-care (01) ==
LOC: PC 07:36
PROVIDERS: PCP Family Medicine; Visit Provider Anesthesiology Pain Medicine
DX: M54.16 Radiculopathy, lumbar region (principal)
CPT/HCPCS: 00123; 62323; 72100; J1010; Q9967

== ENCOUNTER 2024-05-27 15:38 | Outpatient (CLI) | payer MEDICAID, SELFPAY ==
--- NOTE | 2024-05-27 | DI.RAD_ITS ---
Exam(s) XR LUMBAR SPINE FLEX/EXT ONLY EXAM: XR LUMBAR SPINE FLEX/EXT ONLY CLINICAL HISTORY: SPONDYLOLISTHESIS SPINAL REGION M43.10 PAIN BOTH LEGS, SLIP AT L45 L5S1. TECHNIQUE: 2D digital imaging was performed. COMPARISON: CR XR LUMBAR SPINE COMP W FLEX/EX from 04/14/2024 FINDINGS: Two lateral views-flexion and extension: Again noted is a degenerative anterolisthesis of L4 upon L5 and L5 upon S1 related to facet arthrosis at both levels. There is no obvious disc space narrowing at L4-5 level. Mild disc space narrowing L5-S1 level again noted. The amount of slippage-listhesis does not appear to change with flexion extension, both of which appe ar similar to the amount of slippage evident on the prior images. There is mild retrolisthesis of L1 upon L2 noted on both flexion and extension views, similar to prev ious. There is chronic disc space narrowing at multiple levels again noted in the lower thoracic spine. IMPRESSION: Stable amount of listhesis-slippage of L4 upon L5 and L5 upon S1 during flexion and extension maneuve rs. No obvious pars defects. DATA REPOSITORY: RADIATION DOSE DELIVERED:
== END 2024-05-27 15:58 ==
LOC: DI 15:39
PROVIDERS: PCP Family Medicine; Visit Provider Neurological Surgery
DX: M43.16 Spondylolisthesis, lumbar region (principal)
CPT/HCPCS: 72120

== ENCOUNTER 2024-07-14 10:55 | Outpatient (CLI) | payer MEDICAID, SELFPAY ==
--- NOTE | 2024-07-14 10:42 | DI.RAD_ITS ---
Exam(s) XR PAIN CLINIC LUMBAR SP 2V EXAM: XR PAIN CLINIC LUMBAR SP 2V CLINICAL HISTORY: Dx: Lumbar Radiculopathy TECHNIQUE: 2D and realtime digital imaging was performed. CONTRAST MATERIAL: Refer to procedure report. COMPARISON: No exams were available for comparison FINDINGS: Fluoroscopy was provided for Dr. Norris during the performance of a lumbar epidural steroid injecti on. Please refer to the procedure report for complete details. Ka,r=12.7 mGy IMPRESSION: RADIATION DOSE DELIVERED: 0.0 0.0 0
--- NOTE | 2024-07-14 11:05 | PDOC.PAIN ---
Date of service: 07/14/24 Time of Service: 11:52 Pain Managment Procedure Note Procedure Note Procedure Note: Lumbar Interlaminar Epidural Steroid Injection ? Location: L5-S1 ? Pre-procedure Diagnosis: M54.16- Radiculopathy, LUMBAR region ? Post-procedure Diagnosis:? The same as above ? Sedation:? ? None ? Medication: Depo-Medrol 80 mg, Omnipaque 1 mL ? Estimated blood loss:? less than 2 cc ? Surgeon:? Stan Norris MD COMMENT: Good relief from previous LESI. ? Procedure Detail:? The procedure and potential risks were explained to the patient and informed written consent was obtained. The patient was escorted to the procedure room and placed in the prone position. Pillows were utilized for proper positioning and comfort. Time out was performed in the procedure room with nursing staff confirming the patient's identity, procedure to be performed, allergies, and any blood thinning or anti-platelet medications.? The patient's neck and upper back was prepped with ChloraPrep and draped in a sterile fashion. Sterile technique was maintained throughout the procedure.? Sterile gloves were used, a face mask was worn, and new single dose vials of all medications were used with the top being swabbed with alcohol and given time to dry prior to withdrawal of medication. Lidocane 1% was used to anesthetize the skin.Using a 25-gauge 1.5 inch needle, 1% lidocaine was instilled into the superficial soft tissue overlying the targeted area to provide local anesthesia. With fluoroscopic guidance, a 17 -gauge Tuohy needle was advanced toward the interlaminar space of L5-S1. The needle was then advance through the ligamentum flavum and into the posterior epidural space using the loss of resistance technique. Correct needle placement was confirmed through review of the AP and contralateral oblique fluoroscopic views. A 19-gauge arrow catheter was threaded cephalad and to L4-5 Following negative aspiration, one cc of Omnipaque 240 contrast was injected which confirmed good flow throughout the epidural space and no evidence of vascular flow or flow into adjacent compartments. Next, following negative aspiration, 1 cc's of normal saline and 80mg of Depo-Medrol was injected. The needle was gently removed. The patient tolerated the procedure well and was transported to the recovery area for observation and discharge instructions. Permanent images saved and recorded. PAIN PRE-PROCEDURE 11/04 POST-PROCEDURE Plan:? Follow up prn. COMMENT: Pt to have spine surgery next week, Coding Conscious Sedation used for procedure: No CPT Codes: Inj Spine L/S w/Imaging - [id number] ([id number] ~G) Additional Codes: Date of Service (80082) Date of service: 07/14/24
[2024-07-14 11:10] VITALS: BP 161/96; PULSE 68; RESP 18; TEMP 36.5; O2SAT 99
[2024-07-14 11:25] VITALS: PULSE 84; O2SAT 97
[2024-07-14 11:30] VITALS: PULSE 72; O2SAT 98
[2024-07-14 11:40] VITALS: PULSE 68; O2SAT 96
[2024-07-14] MEDS: Epidural Tray 1 EACH MC (11:44)
[2024-07-14] MEDS: Omnipaque 240 MG/ML 50 ML BTL IJ (11:44)
[2024-07-14] MEDS: methylPREDNISolone ACETATE 40 MG/ML VIAL IJ (11:45)
== END 2024-07-14 10:56 | disposition home or self-care (01) ==
LOC: PC 10:56
PROVIDERS: PCP Family Medicine; Visit Provider Anesthesiology Pain Medicine
DX: M54.16 Radiculopathy, lumbar region (principal)
CPT/HCPCS: 62323; 72100; J1010; Q9967

== ENCOUNTER 2024-07-29 12:46 | Outpatient (REF) | payer MEDICAID, SELFPAY ==
[2024-07-29 15:26] LABS: HCT 41.5 % (36.0-46.0); HGB 13.3 g/dL (11.2-15.7); MCH 31.4 pg (27.0-33.0); MCV 98 fL (80-95); MPV 9.5 fL (8.0-11.0); Platelet Count 320 10^3/uL (130-400); RBC 4.24 10^6/uL (3.93-5.22); RDW-SD 43.8 fL; WBC 4.19 10^3/uL (4.4-10.8)
[2024-07-29 15:40] LABS: ALT 25 U/L (14-59); AST 22 U/L (15-37); Alkaline Phosphatase 128 U/L (46-116); Anion Gap 10.3 mmol/L (3-11); BUN 14 mg/dL (7-18); Bilirubin, Total 0.8 mg/dL (0.2-1.0); CO2 24.7 mmol/L (21.0-32.0); CREATININE 0.7 mg/dL (0.55-1.02); Calcium 9.6 mg/dL (8.5-10.1); Chloride 107 mmol/L (98-107); Estimated GFR 92.98 (mL/min/1.73m2); Glucose 95 mg/dL (74-106); Potassium 4.4 mmol/L (3.5-5.1); Sodium 142 mmol/L (136-145); Total Protein 7.1 g/dL (6.4-8.2)
== END 2024-07-29 12:47 | disposition home or self-care (01) ==
LOC: NCHCN 12:46
PROVIDERS: PCP Family Medicine; Visit Provider Family Medicine
DX: Z01.818 Encounter for other preprocedural examination (principal)
CPT/HCPCS: 80053; 85027